=== PATIENT | female | born 1970 | race Caucasian/White ===

== ENCOUNTER 2016-10-13 10:42 | Emergency (ER) | payer OTHER ==
[2016-10-13 11:19] LABS: BASOPHIL 0.2 % (0-2); EOSINOPHIL 0.5 % (0-5); HCT 39.2 % (37.0-47.0); LYMPHOCYTE 31.3 % (15-48); MCH 29.1 pg (25.0-31.0); MCHC 33.2 g/dL (32.0-36.0); MCV 87.9 fL (78.0-100.0); MONOCYTE 6.9 % (0-12); MPV 9.1 fL (6.0-9.5); NEUTROPHIL 61.1 % (41-80); PLT 272 K/uL (150-400); RBC 4.46 M/uL (4.20-5.40); RDW 13.2 % (11.5-14.0); WBC 5.7 K/uL (4.0-10.5)
[2016-10-13 11:23] LABS: INR 1.08 (0.9-1.2); PROTHROMBIN TIME 13.6 SECONDS (11.7-14.0); PTT 27.3 SECONDS (23.2-31.4)
[2016-10-13 11:31] LABS: ALBUMIN 4.5 g/dL (3.5-5.0); BILIRUBIN - TOTAL 0.6 mg/dL (0.1-1.0); CREATININE 0.8 mg/dL (0.5-1.0); GLOBULIN (CALCULATION) 2.2 g/dL (2.2-4.2); MAGNESIUM 2.01 mg/dL (1.40-2.10); POTASSIUM 4.1 mmol/L (3.5-5.1); TOTAL PROTEIN 6.7 g/dL (6.4-8.3)
[2016-10-13 11:32] LABS: CKMB 1.44 ng/mL (0.97-4.94); MYOGLOBIN 40 ng/mL (26-65); PRO-BNP 21 pg/mL (0-125); TROPONIN T < 0.010 ng/mL
== END 2016-10-13 12:16 | disposition home or self-care (01) ==
LOC: FER 10:42
PROVIDERS: Emergency Medicine
DX: R07.89 Other chest pain (principal); R05 Cough; Z82.49 Family history of ischemic heart disease and other diseases of the circulatory system
CPT/HCPCS: 36415; 71010; 80053; 82550; 82553; 83735; 83874; 83880; 84484; 85025; 85610; 85730; 93005